=== PATIENT | male | born 1950 | race Caucasian/White ===

== ENCOUNTER 2023-04-17 11:53 | Observation (INO) ==
[2023-04-17 12:33] LABS: Urine Appearance Clear; Urine Bilirubin Negative (Negative); Urine Blood Negative (Negative); Urine Color Yellow; Urine Glucose Negative (Negative); Urine Ketones Negative (Negative); Urine Nitrite Negative (Negative); Urine Protein Negative (Negative); Urine Specific Gravity 1.012 (1.002-1.030); Urine Urobilinogen Negative (Negative)
[2023-04-17] MEDS ORDERED: Acetaminophen IV 1 GM/100ML 1,000 MG/100 ML BAG IV ONE (13:25)
[2023-04-17] MEDS ORDERED: Lactated Ringers 1000 ml BAG 1,000 ML IV ONE ×2 (13:25→15:48)
[2023-04-17 13:49] LABS: ABS Eosinophils 0.1 10^3/uL (0.0-0.5); ABS Lymphocytes 1.1 10^3/uL (1.0-4.8); ABS Monocytes 1.3 10^3/uL (0.0-1.1); ABS Neutrophils 7.2 10^3/uL (1.5-7.6); Eosinophil % 0.9 %; Hematocrit 42.6 % (38-53); Hemoglobin 14.8 g/dL (13.2-16.3); Lymphocyte % 11.8 %; Mean Corpuscular Hemoglobin 32.6 pg (27-33); Mean Corpuscular Hgb Conc 34.7 g/dL (31-36); Mean Platelet Volume 7.4 fL (7.5-11.2); Platelet Count 276 10^3/uL (150-450); Red Blood Count 4.54 10^6/uL (4.06-5.63); Red Cell Distribution Width 13.7 % (12-17); White Blood Count 9.8 10^3/uL (3.6-10.2)
[2023-04-17 14:09] LABS: Albumin 4.1 g/dL (3.2-5.2); Albumin/Globulin Ratio 1.2 (1-3); C Reactive Protein 84.42 mg/L (<8.01); Calcium 9.3 mg/dL (8.6-10.3); Creatinine, Serum 0.89 mg/dL (0.67-1.17); Globulin 3.3 g/dL (2-4); Potassium 3.9 mmol/L (3.5-5.0); Total Bilirubin 1.2 mg/dL (0.2-1.0); Total Protein 7.4 g/dL (6.4-8.9); eGFR CKD-EPI 92.2 (>60)
[2023-04-17] MEDS ORDERED: cefTRIAXone 2 gm/50 mL D5W 2 GM/50 ML BAG IV ONE (15:48)
[2023-04-17] MEDS ORDERED: Morphine 4 MG/ML VIAL (1 ml) IV ONE (16:32)
[2023-04-17] MEDS ORDERED: Enoxaparin 40 MG/0.4 ML SYR SUBCUT SCH (17:00)
[2023-04-17] MEDS ORDERED: Morphine 2 MG/ML SYRINGE IV PRN ×2 (17:30→17:32)
[2023-04-17] MEDS: Morphine 2 MG/ML SYRINGE IV PRN ×2 (19:52→22:52)
[2023-04-17] MEDS: Lactated Ringers 1000 ml BAG 1,000 ML IV SCH (23:01)
[2023-04-18] MEDS: Morphine 2 MG/ML SYRINGE IV PRN ×4 (01:04→12:56)
[2023-04-18] MEDS: Lactated Ringers 1000 ml BAG 1,000 ML IV SCH (04:36)
[2023-04-18 06:34] LABS: Calcium 8.4 mg/dL (8.6-10.3); Creatinine, Serum 0.78 mg/dL (0.67-1.17); Magnesium 1.7 mg/dL (1.9-2.7); eGFR CKD-EPI 95.9 (>60)
[2023-04-18] MEDS ORDERED: Magnesium Sulfate 2 gm BAG 2 GM/50 ML BAG IVPB ONE (07:13)
[2023-04-18] MEDS ORDERED: cefTRIAXone 1 gm/50 mL D5W 1 GM/50 ML BAG IV SCH ×2 (09:00→16:00)
[2023-04-18 10:19] VITALS: BP 127/74
== END 2023-04-18 13:55 | disposition home or self-care (01) ==
LOC: ED 11:53 → EDHOLD 11:53 → SUATTDRO 16:36 → MED 19:04
PROVIDERS: ADMIT Student in an Organized Health Care Education/Training Program; ATTEND Internal Medicine

== ENCOUNTER 2023-04-18 17:26 | Observation (INO) ==
[2023-04-18] MEDS ORDERED: Lidocaine PATCH 5% PATCH TRANSDERM ONE (19:08)
[2023-04-18] MEDS ORDERED: Lorazepam PYXIS KEY PRN (19:38)
[2023-04-18] MEDS ORDERED: LORazepam 2 mg VIAL 1 ml IV PUSH ONE (19:38)
[2023-04-18 19:57] LABS: ABS Eosinophils 0.1 10^3/uL (0.0-0.5); ABS Lymphocytes 1.3 10^3/uL (1.0-4.8); ABS Monocytes 1.3 10^3/uL (0.0-1.1); ABS Neutrophils 6.3 10^3/uL (1.5-7.6); Eosinophil % 1.5 %; Hematocrit 38.8 % (38-53); Hemoglobin 13.3 g/dL (13.2-16.3); Lymphocyte % 13.9 %; Mean Corpuscular Hemoglobin 32.2 pg (27-33); Mean Corpuscular Hgb Conc 34.2 g/dL (31-36); Mean Corpuscular Volume 93.9 fL (80-97); Mean Platelet Volume 7.6 fL (7.5-11.2); Platelet Count 247 10^3/uL (150-450); Red Blood Count 4.13 10^6/uL (4.06-5.63); Red Cell Distribution Width 13.2 % (12-17); White Blood Count 9.1 10^3/uL (3.6-10.2)
[2023-04-18 20:08] LABS: Activated Partial Thrombo Time 30.7 seconds (26.0-38.0); INR 1.01 (0.83-1.13)
[2023-04-18 20:16] LABS: Albumin 3.7 g/dL (3.2-5.2); Albumin/Globulin Ratio 1.2 (1-3); C Reactive Protein 105.66 mg/L (<8.01); Calcium 8.6 mg/dL (8.6-10.3); Creatinine, Serum 0.82 mg/dL (0.67-1.17); Globulin 3.1 g/dL (2-4); Potassium 3.9 mmol/L (3.5-5.0); Total Bilirubin 0.6 mg/dL (0.2-1.0); Total Protein 6.8 g/dL (6.4-8.9); eGFR CKD-EPI 94.5 (>60)
[2023-04-18] MEDS ORDERED: Vancomycin 1,500 MG in NS 0.9% 250 ml 250 ML IVPB ONE (22:07)
[2023-04-18] MEDS ORDERED: cefTRIAXone 2 GM ADDV.VIAL 2 GM in NS 0.9% 100 ml BAG 100 ML IV ONE (22:11)
[2023-04-18] MEDS ORDERED: cefTRIAXone 2 gm/50 mL D5W 2 GM/50 ML BAG IV ONE (22:30)
[2023-04-18] MEDS ORDERED: Morphine 4 MG/ML VIAL (1 ml) IV ONE (22:48)
[2023-04-19 01:35] LABS: Erythrocyte Sed Rate 32 mm/Hr (0-19)
[2023-04-19] MEDS ORDERED: Morphine 2 MG/ML SYRINGE IV ONE (01:53)
[2023-04-19] MEDS ORDERED: Vancomycin 1,500 MG in NS 0.9% 250 ml 250 ML IVPB SCH (02:31)
[2023-04-19] MEDS ORDERED: Vancomycin per Pharmacy 1 EA NOTE FOLLOW UP PRN (02:54)
[2023-04-19] MEDS: Enoxaparin 40 MG/0.4 ML SYR SUBCUT SCH (03:31)
[2023-04-19] MEDS: Ampicillin ADVAN 2 GM in NS 0.9% 100 ml BAG 100 ML IVPB SCH ×5 (06:01→21:17)
[2023-04-19 06:14] LABS: ABS Eosinophils 0.1 10^3/uL (0.0-0.5); ABS Lymphocytes 0.9 10^3/uL (1.0-4.8); ABS Monocytes 1.2 10^3/uL (0.0-1.1); ABS Neutrophils 6.3 10^3/uL (1.5-7.6); ABS Nucleated RBC 0.01 10^3/ul; Eosinophil % 1.5 %; Hematocrit 37.7 % (38-53); Hemoglobin 13.2 g/dL (13.2-16.3); Lymphocyte % 10.8 %; Mean Corpuscular Hemoglobin 33.1 pg (27-33); Mean Corpuscular Hgb Conc 34.9 g/dL (31-36); Mean Corpuscular Volume 94.8 fL (80-97); Mean Platelet Volume 7.4 fL (7.5-11.2); Nucleated Red Blood Cells % 0.1 %/100WBC (0.0-0.8); Platelet Count 239 10^3/uL (150-450); Red Blood Count 3.98 10^6/uL (4.06-5.63); Red Cell Distribution Width 13.4 % (12-17); White Blood Count 8.6 10^3/uL (3.6-10.2)
[2023-04-19 06:41] LABS: Calcium 8.5 mg/dL (8.6-10.3); Creatinine, Serum 0.75 mg/dL (0.67-1.17); Potassium 3.8 mmol/L (3.5-5.0); eGFR CKD-EPI 97.1 (>60)
[2023-04-19] MEDS ORDERED: Morphine 2 MG/ML SYRINGE IV PRN (10:41)
[2023-04-19] MEDS ORDERED: Acetaminophen IV 1 GM/100ML 1,000 MG/100 ML BAG IV PRN (11:16)
[2023-04-19] MEDS: cefTRIAXone 2 gm/50 mL D5W 2 GM/50 ML BAG IV SCH (11:48)
[2023-04-19] MEDS: Vancomycin 1,250 MG in NS 0.9% 250 ml 250 ML IVPB SCH (13:44)
[2023-04-20] MEDS: Vancomycin 1,250 MG in NS 0.9% 250 ml 250 ML IVPB SCH ×2 (01:17→13:28)
[2023-04-20] MEDS: cefTRIAXone 2 gm/50 mL D5W 2 GM/50 ML BAG IV SCH ×2 (01:18→12:15)
[2023-04-20] MEDS: Ampicillin ADVAN 2 GM in NS 0.9% 100 ml BAG 100 ML IVPB SCH ×3 (02:06→10:27)
[2023-04-20] MEDS: Enoxaparin 40 MG/0.4 ML SYR SUBCUT SCH (05:47)
[2023-04-20 06:03] LABS: ABS Basophils 0.1 10^3/uL (0.0-0.1); ABS Eosinophils 0.3 10^3/uL (0.0-0.5); ABS Lymphocytes 1.1 10^3/uL (1.0-4.8); ABS Monocytes 1.3 10^3/uL (0.0-1.1); ABS Neutrophils 5.1 10^3/uL (1.5-7.6); Eosinophil % 3.7 %; Hematocrit 37.8 % (38-53); Lymphocyte % 13.8 %; Mean Corpuscular Hemoglobin 32.5 pg (27-33); Mean Corpuscular Hgb Conc 34.4 g/dL (31-36); Mean Corpuscular Volume 94.4 fL (80-97); Mean Platelet Volume 7.5 fL (7.5-11.2); Nucleated Red Blood Cells % 0.1 %/100WBC (0.0-0.8); Platelet Count 256 10^3/uL (150-450); White Blood Count 7.7 10^3/uL (3.6-10.2)
[2023-04-20 06:18] LABS: Calcium 8.5 mg/dL (8.6-10.3); Creatinine, Serum 0.77 mg/dL (0.67-1.17); Potassium 3.9 mmol/L (3.5-5.0); eGFR CKD-EPI 96.3 (>60)
[2023-04-20] MEDS ORDERED: Vancomycin Trough Check NOTE FOLLOW UP ONE (11:30)
[2023-04-20] MEDS: Nystatin TOP POWDER 15 GM BTL TOPICAL SCH ×2 (16:45→22:34)
[2023-04-20] MEDS ORDERED: Vancomycin 1000 MG in NS 0.9% 250 ML IVPB SCH (21:00)
[2023-04-21] MEDS: Enoxaparin 40 MG/0.4 ML SYR SUBCUT SCH (06:15)
[2023-04-21 06:29] LABS: ABS Eosinophils 0.4 10^3/uL (0.0-0.5); ABS Lymphocytes 1.2 10^3/uL (1.0-4.8); ABS Neutrophils 3.9 10^3/uL (1.5-7.6); Hematocrit 37.8 % (38-53); Lymphocyte % 18.1 %; Mean Corpuscular Hemoglobin 32.5 pg (27-33); Mean Corpuscular Hgb Conc 34.5 g/dL (31-36); Mean Corpuscular Volume 94.3 fL (80-97); Mean Platelet Volume 7.6 fL (7.5-11.2); Nucleated Red Blood Cells % 0.1 %/100WBC (0.0-0.8); Platelet Count 283 10^3/uL (150-450); Red Blood Count 4.01 10^6/uL (4.06-5.63); Red Cell Distribution Width 12.9 % (12-17); White Blood Count 6.6 10^3/uL (3.6-10.2)
[2023-04-21] MEDS: Nystatin TOP POWDER 15 GM BTL TOPICAL SCH (08:49)
[2023-04-21 09:55] LABS: Erythrocyte Sed Rate 48 mm/Hr (0-19)
[2023-04-21 13:43] VITALS: BP 151/81
[2023-04-22 14:50] LABS: Anaplasma phagocytophilum Negative (Negative); B. miyamotoi PCR, B Negative (Negative); Babesia divergens/MO-1 Negative (Negative); Babesia ducani Negative (Negative); Ehrlichia chaffeensis Negative (Negative); Ehrlichia ewingii/canis Negative (Negative); Ehrlichia muris eauclairensis Negative (Negative)
[2023-04-25 09:57] LABS: HLA B27 Negative
== END 2023-04-21 15:19 | disposition home or self-care (01) ==
LOC: ED 17:26 → EDHOLD 17:26 → SUATTDRO 04-19 01:06 → MED 04-19 12:38
PROVIDERS: ADMIT Internal Medicine; ATTEND Internal Medicine